=== PATIENT | female | born 1985 | race Hispanic/Latino ===

== ENCOUNTER 2016-10-08 16:58 | Emergency (ER) | payer MEDICAID ==
--- NOTE | 2016-10-08 17:35 | Emergency Department Report ---
Chief Complaint: Psych Stated Complaint: SUICIDAL Time Seen by Provider: 10/08/16 17:32 - HPI History of Present Illness: 31 year old female who is schizophrenic states that she is suiocidal. states that she takes haldol but has been off her medication for a few days. states hearing voices that tell her to jump into oncoming traffic. states hx is the same. - Exam Vital Signs: Vital Signs 10/08/16 17:11 Temperature 98.5 F Pulse Rate 92 H Respiratory 18 Rate Blood Pressure 129/92 O2 Sat by Pulse 98 Oximetry Physical Exam: patient appears distressed appears suicidal with plan. crying in exam room. MSE screening note: Focused history and physical exam performed. Due to findings the following was ordered: spoke with Lucinda the charge nurse about getting room and 1013 patient. ED Disposition for MSE Condition: Stable
[2016-10-08] MEDS ORDERED: ZOFRAN ONE (18:36)
[2016-10-08] MEDS ORDERED: PROVENTIL IH ONE (18:56)
[2016-10-08] MEDS ORDERED: ATROVENT IH ONE (18:56)
--- NOTE | 2016-10-08 19:05 | Emergency Department Report ---
HPI - General Chief Complaint: Psych Time Seen by Provider: 10/08/16 18:47 - HPI HPI: Room 6 The patient is a 31-year-old female presenting with a chief complaint of suicidal ideation. The patient has a history of schizophrenia states she has stopped taking her psychiatric medications intentionally approximately 2-3 days ago. The patient states for the past several days she has had auditory hallucinations telling her to jump in front of moving traffic. The patient states she is having visual hallucinations shadows. The patient denies any active attempts at harming herself since the symptoms began however she does have a history of attempting suicide by jumping in front of traffic in the past. Location: Mental state Duration:. 2-3 days Quality: Suicidal Severity: Severe Modifying factors: [see above] Context: [see above] Mode of transportation: [not driving] ED Past Medical Hx - Past Medical History Hx Hypertension: Yes Hx Psychiatric Treatment: Yes (schizophrenia,bipolar) - Surgical History Additional Surgical History: reconstructive surgery to face- she jumped in traffic to kill herself - Family History Family history: no significant - Social History Smoking Status: Current Every Day Smoker Substance Use Type: Marijuana - Medications Home Medications: Home Medications Medication Instructions Recorded Confirmed Last Taken Type Haldol (Nf) 10/08/16 Unknown History ED Review of Systems ROS: Stated complaint: SUICIDAL Other details as noted in HPI Comment: All other systems reviewed and negative Constitutional: denies: chills, fever Eyes: denies: eye pain, eye discharge, vision change ENT: denies: ear pain, throat pain Respiratory: denies: cough, shortness of breath, wheezing Cardiovascular: denies: chest pain, palpitations Endocrine: no symptoms reported Gastrointestinal: denies: abdominal pain, nausea, diarrhea Genitourinary: denies: urgency, dysuria, discharge Musculoskeletal: denies: back pain, joint swelling, arthralgia Skin: denies: rash, lesions Neurological: denies: headache, weakness, paresthesias Psychiatric: auditory hallucinations, visual hallucinations, suicidal thoughts Hematological/Lymphatic: denies: easy bleeding, easy bruising Physical Exam - Physical Exam Vital Signs: Vital Signs 10/08/16 10/08/16 17:11 18:28 Temperature 98.5 F Pulse Rate 92 H 82 Respiratory 18 18 Rate Blood Pressure 129/92 Blood Pressure 134/92 [Left] O2 Sat by Pulse 98 99 Oximetry Physical Exam: GENERAL: The patient is well-developed well-nourished female lying on stretcher not appearing to be in acute distress. [] HEENT: Normocephalic. Atraumatic. Extraocular motions are intact. Patient has moist mucous membranes. NECK: Supple. Trachea midline CHEST/LUNGS: Occasional wheeze and rhonchi. There is no respiratory distress noted. Occasional cough HEART/CARDIOVASCULAR: Regular. There is no tachycardia. There is no gallop rub or murmur. ABDOMEN: Abdomen is soft, nontender. Patient has normal bowel sounds. There is no abdominal distention. SKIN: There is no rash. There is no edema. There is no diaphoresis. NEURO: The patient is awake and alert. The patient is cooperative. The patient has normal speech MUSCULOSKELETAL: There is no evidence of acute injury. ED Course Vital Signs 10/08/16 10/08/16 17:11 18:28 Temperature 98.5 F Pulse Rate 92 H 82 Respiratory 18 18 Rate Blood Pressure 129/92 Blood Pressure 134/92 [Left] O2 Sat by Pulse 98 99 Oximetry ED Medical Decision Making - Lab Data Result diagrams: 10/08/16 18:59 10/08/16 18:59 Laboratory Tests 10/08/16 10/08/16 10/08/16 18:59 18:59 18:59 WBC 7.0 RBC 4.10 Hgb 12.3 Hct 37.7 MCV 92 MCH 30 MCHC 33 RDW 14.7 Plt Count 252 Lymph % (Auto) 39.3 H [place] % (Auto) 5.5 Eos % (Auto) 1.9 Baso % (Auto) 1.1 Lymph # 2.8 [place] # 0.4 Eos # 0.1 Baso # 0.1 Seg Neutrophils % 52.2 Seg Neutrophils # 3.7 Sodium 141 Potassium 3.9 Chloride 104.2 Carbon Dioxide 22 Anion Gap 19 BUN 8 Creatinine 0.5 L Estimated GFR > 60 BUN/Creatinine Ratio 16.00 Glucose 82 Calcium 8.4 Total Bilirubin < 0.2 AST 66 H ALT 87 H Alkaline Phosphatase 65 Total Protein 6.3 Albumin 3.8 L Albumin/Globulin Ratio 1.5 HCG, Qual Negative Urine Color Urine Turbidity Urine pH Ur Specific [place] Urine Protein Urine Glucose (UA) Urine Ketones Urine Blood Urine Nitrite Urine Bilirubin Urine Urobilinogen Ur Leukocyte Esterase Urine WBC (Auto) Urine RBC (Auto) U Epithel Cells (Auto) Urine Mucus Salicylates Urine Opiates Screen Urine Methadone Screen Acetaminophen Ur Barbiturates Screen Ur Phencyclidine Scrn Ur Amphetamines Screen U Benzodiazepines Scrn Urine Cocaine Screen U Marijuana (THC) Screen Drugs of Abuse Note 10/08/16 10/08/16 10/08/16 20:17 20:17 21:01 WBC RBC Hgb Hct MCV MCH MCHC RDW Plt Count Lymph % (Auto) [place] % (Auto) Eos % (Auto) Baso % (Auto) Lymph # [place] # Eos # Baso # Seg Neutrophils % Seg Neutrophils # Sodium Potassium Chloride Carbon Dioxide Anion Gap BUN Creatinine Estimated GFR BUN/Creatinine Ratio Glucose Calcium Total Bilirubin AST ALT Alkaline Phosphatase Total Protein Albumin Albumin/Globulin Ratio HCG, Qual Urine Color Yellow Urine Turbidity Clear Urine pH 7.0 Ur Specific [place] 1.012 Urine Protein <15 mg/dl Urine Glucose (UA) Neg Urine Ketones Neg Urine Blood Sm Urine Nitrite Neg Urine Bilirubin Neg Urine Urobilinogen < 2.0 Ur Leukocyte Esterase Neg Urine WBC (Auto) 2.0 Urine RBC (Auto) 1.0 U Epithel Cells (Auto) 7.0 Urine Mucus Few Salicylates < 0.3 L Urine Opiates Screen Urine Methadone Screen Acetaminophen < 15.0 Ur Barbiturates Screen Ur Phencyclidine Scrn Ur Amphetamines Screen U Benzodiazepines Scrn Urine Cocaine Screen U Marijuana (THC) Screen Drugs of Abuse Note 10/08/16 21:01 WBC RBC Hgb Hct MCV MCH MCHC RDW Plt Count Lymph % (Auto) [place] % (Auto) Eos % (Auto) Baso % (Auto) Lymph # [place] # Eos # Baso # Seg Neutrophils % Seg Neutrophils # Sodium Potassium Chloride Carbon Dioxide Anion Gap BUN Creatinine Estimated GFR BUN/Creatinine Ratio Glucose Calcium Total Bilirubin AST ALT Alkaline Phosphatase Total Protein Albumin Albumin/Globulin Ratio HCG, Qual Urine Color Urine Turbidity Urine pH Ur Specific [place] Urine Protein Urine Glucose (UA) Urine Ketones Urine Blood Urine Nitrite Urine Bilirubin Urine Urobilinogen Ur Leukocyte Esterase Urine WBC (Auto) Urine RBC (Auto) U Epithel Cells (Auto) Urine Mucus Salicylates Urine Opiates Screen Presumptive negative Urine Methadone Screen Presumptive negative Acetaminophen Ur Barbiturates Screen Presumptive negative Ur Phencyclidine Scrn Presumptive negative Ur Amphetamines Screen Presumptive negative U Benzodiazepines Scrn Presumptive negative Urine Cocaine Screen Presumptive negative U Marijuana (THC) Screen Presumptive negative Drugs of Abuse Note Disclamer - Radiology Data Radiology results: image reviewed (chest x-ray) interpreted by me: Chest x-ray-no focal infiltrates, no pneumothorax - Differential Diagnosis schizophrenia, suicidal ideation, auditory hallucinations Critical care attestation.: If time is entered above; I have spent that time in minutes in the direct care of this critically ill patient, excluding procedure time. ED Disposition Clinical Impression: Schizophrenia, Suicidal ideation, Auditory hallucinations, Cough Disposition: DC/TX PSY HOSP/PSY UNIT Is pt being admited?: No Does the pt Need Aspirin: No Condition: Serious Time of Disposition: 21:31 (awaiting acceptance)
[2016-10-08] MEDS ORDERED: ZOFRAN IV ONE (19:08)
[2016-10-08] MEDS ORDERED: TESSALON PERLES PO ONE (19:11)
[2016-10-08 19:20] LABS: Basophils % (Auto) 1.1 % (0.0-1.8); Eosinophils % (Auto) 1.9 % (0.0-4.3); Hematocrit 37.7 % (30.3-42.9); Hemoglobin 12.3 gm/dl (10.1-14.3); Mean Corpuscular HGB Conc 33 % (30-34); Mean Corpuscular Hemoglobin 30 pg (28-32); Mean Corpuscular Volume 92 fl (79-97); Platelet Count 252 K/mm3 (140-440); Red Cell Distribution Width 14.7 % (13.2-15.2)
[2016-10-08 19:47] LABS: Alanine Aminotransferase 87 units/L (7-56); Albumin 3.8 g/dL (3.9-5); Albumin/Globulin Ratio 1.5 %; Alkaline Phosphatase 65 units/L (35-129); Bilirubin,Total < 0.2 mg/dL (0.1-1.2); Blood Urea Nitrogen 8 mg/dL (7-17); Calcium 8.4 mg/dL (8.4-10.2); Carbon Dioxide 22 mmol/L (22-30); Chloride 104.2 mmol/L (98-107); Glucose 82 mg/dL (65-100); Potassium 3.9 mmol/L (3.6-5.0); Sodium 141 mmol/L (137-145); Total Protein 6.3 g/dL (6.3-8.2)
[2016-10-08 20:06] LABS: Anion Gap 19 mmol/L
[2016-10-08 21:06] LABS: Urine Drugs of Abuse Note Disclamer
[2016-10-08 21:15] LABS: Bilirubin,Urine NEG (Negative); Blood,Urine SM (Negative); Ketones,Urine NEG (Negative); Leukocyte Esterase,Urine NEG (Negative); Mucus,Urine FEW /HPF; Nitrite,Urine NEG (Negative); Protein,Urine <15 mg/dL mg/dL (Negative); Urobilinogen,Urine < 2.0 mg/dL (<2.0)
[2016-10-08] MEDS ORDERED: FIORICET PO ONE (21:29)
[2016-10-08] MEDS ORDERED: BENADRYL IM PRN (21:31)
[2016-10-08] MEDS ORDERED: HALDOL IM PRN (21:31)
[2016-10-08] MEDS ORDERED: ATIVAN IM PRN (21:31)
--- NOTE | 2016-10-09 07:48 | XRay Report ---
CHEST ONE VIEW INDICATION: Cough. COMPARISON: None similar at this institution. FINDINGS: Portable, single, frontal chest radiograph demonstrates normal cardiomediastinal silhouette. Clear lungs. Unremarkable bones. CONCLUSION: No acute disease in the chest. Thank you for the opportunity to participate in this patient's care.
[2016-10-09 08:01] VITALS: BP 116/77
[2016-10-09] MEDS ORDERED: TYLENOL ONE (09:19)
[2016-10-09] MEDS ORDERED: TYLENOL PO ONE (09:59)
== END 2016-10-09 10:40 ==
LOC: EEVIPCON 16:58 → ED 16:58
DX: F20.9 Schizophrenia, unspecified (principal); R44.0 Auditory hallucinations; R45.851 Suicidal ideations; R05 Cough; F31.9 Bipolar disorder, unspecified; I10 Essential (primary) hypertension; F17.200 Nicotine dependence, unspecified, uncomplicated; F12.90 Cannabis use, unspecified, uncomplicated
CPT/HCPCS: 36415; 71010; 80053; 80307; 81001; 84703; 85025; 94640; 96374; 99285; G0480; J2405; 80320